=== PATIENT | female | born 1955 | race Caucasian/White ===

== ENCOUNTER → 2016-12-15 | Outpatient (CLI) | payer OTHER, MEDICARE ==
--- NOTE | 2016-12-16 08:51 | MM ---
Reason for exam: screening (asymptomatic). Last mammogram was performed 2 years and 6 months ago. History: Patient is postmenopausal and is nulliparous. Physical Findings: A clinical breast exam by your physician is recommended on an annual basis and results should be correlated with mammographic findings. MG 3D Screening Mammo W/Cad Bilateral CC and MLO view(s) were taken. Prior study comparison: June 13, 2014, bilateral MG screening mammo w CAD. August 17, 2012, mammogram, performed at [place]. There are scattered fibroglandular densities. Stable benign calcifications. There is no discrete abnormality. No significant changes when compared with prior studies. ASSESSMENT: Benign, BI-RAD 2 RECOMMENDATION: Routine screening mammogram of both breasts in 1 year.
== END | disposition home or self-care (01) ==
LOC: RADMAMWWP 12:50
PROVIDERS: ATTEND Family Medicine
DX: Z12.31 Encounter for screening mammogram for malignant neoplasm of breast (principal)
CPT/HCPCS: 77063; G0202

== ENCOUNTER → 2016-12-16 | Outpatient (CLI) | payer OTHER, MEDICARE ==
--- NOTE | 2016-12-16 14:34 | CT ---
EXAMINATION TYPE: CT brain wo/w con DATE OF EXAM: 12/16/2016 1:46 PM COMPARISON: NONE HISTORY: headache, syncope CT DLP: 2095 mGycm Automated exposure control for dose reduction was used. CONTRAST: CT scan of the head is performed with IV Contrast, patient injected with 100 mL of Omnipaque 300. FINDINGS: There is no abnormal enhancing mass or midline shift identified. The ventricles and sulci are within normal limits in size. The globes are intact and the visualized sinuses are clear. IMPRESSION: Negative contrast enhanced head CT exam.
== END | disposition home or self-care (01) ==
LOC: RADCTMAIN 13:09
PROVIDERS: ATTEND Family Medicine
DX: R51 Headache (principal); R55 Syncope and collapse
CPT/HCPCS: 70470

== ENCOUNTER → 2017-01-28 | Outpatient (CLI) | payer OTHER, MEDICARE ==
[2017-01-28 11:55] VITALS: BP 126/80; PULSE 55; RESP 20; TEMP 97.7; BMI 32.5
[2017-01-28 13:12] LABS: CH 29.3; CHCM 33.4; HDW 2.44; HGB 15.2 gm/dL (11.4-16.0); MCV 87.9 fL (80.0-100.0); Mean Platelet Volume 7.3; RBC 5.23 m/uL (3.80-5.40); RDW 13.3 % (11.5-15.5); WBC 5.7 k/uL (3.8-10.6)
[2017-01-28 13:32] LABS: ALT 28 U/L (9-52); AST 26 U/L (14-36); Alkaline Phosphatase 87 U/L (38-126); Anion Gap 9 mmol/L; Blood Urea Nitrogen 19 mg/dL (7-17); Calcium 9.5 mg/dL (8.4-10.2); Carbon Dioxide 30 mmol/L (22-30); Chloride 100 mmol/L (98-107); Cholesterol 175 mg/dL (<200); Glucose 100 mg/dL (74-99); HDL Cholesterol 76 mg/dL (40-60); Iron 91 ug/dL (37-170); Non-African American GFR(MDRD) >60 (>60 ml/min/1.73 sqM); Partial Thromboplastin Time 22.9 sec (22.0-30.0); Phosphorous 4.4 mg/dL (2.5-4.5); Potassium 4.8 mmol/L (3.5-5.1); Prothrombin Time 10.2 sec (9.0-12.0); Sodium 139 mmol/L (137-145); Total Bilirubin 1.2 mg/dL (0.2-1.3); Total Protein 7.5 g/dL (6.3-8.2); Triglycerides 59 mg/dL (<150)
[2017-01-28 13:40] LABS: Hemoglobin A1C 5.2 % (4.2-6.1)
[2017-01-28 13:44] LABS: % Iron Saturation 27.1 % (20-50); Prealbumin 17 mg/dL (18-36); Total Iron Binding Capacity 336 ug/dL (265-497)
[2017-01-28 14:44] LABS: Vitamin B12 427 pg/mL (239-931)
[2017-02-02 16:40] LABS: Selenium 149 mcg/L (63-160)
--- NOTE | 2017-03-19 11:09 | P.PN ---
Progress Note - Text DATE OF SERVICE: 01/28/2017 CHIEF COMPLAINT: Follow-up gastric bypass. HISTORY OF PRESENT ILLNESS: Dahlia Landin is a 61-year-old female who is status post Jaison-en-Y gastric bypass in [place] in 2011. At her height of 5 feet 3-1/4 inches, her ideal body weight is 140 pounds. Her highest weight iwa 298 pounds. Today she comes in weighing 188 pounds. She has maintained a 110 pound weight loss. Percent excess weight loss is 70%. Since her last evaluation almost 2 years ago, body mass index is reduced from 51.7 and 32.5. BMI point reduction is 19.1. She is 48 pounds overweight. Now she comes in for evaluation for panniculectomy. She complains of lower back pain as a result. Now she comes in with trouble with her blood pressure. She also reports severe panniculitis. PAST MEDICAL HISTORY: 1. Morbid obesity. 2. Hiatal hernia. 3. Cardiomyopathy. 4. Dyslipidemia. 5. Hypertension. 6. Panniculitis. PAST SURGICAL HISTORY: 1. Jaison-en-Y gastric bypass. 2. EGD. MEDICATIONS: 1. Multivitamin. 2. Feosol. 3. Vitamin B12. 4. Vitamin D. 5. Hygroton. 6. Ventolin. ALLERGIES: 1. LATEX. 2. PENICILLIN. 3. BACTRIM. SOCIAL HISTORY: Former smoker. Admits alcohol use. FAMILY HISTORY: Pertinent for diabetes including morbid obesity. REVIEW OF SYSTEMS: CONSTITUTIONAL: Weight loss of 3 pounds in 3 years. Original weight was 298 pounds. Current weight 188 pounds. She is 110 pounds overweight. Percent excess weight loss is 70%. Body mass index down from 51.7 down to 32.5. HEENT: No troubles with vision or hearing. ENDOCRINE: History of diabetes type 2, resolved. Denies any thyroid disorder. CARDIOVASCULAR: No reports of chest and heart attack. RESPIRATORY: No reports of dyspnea on exertion, obstructive sleep apnea. GI: Dumping syndrome has resolved with dietary education. MUSCULOSKELETAL: No reports of bilateral extremity edema. Osteoarthritis resolved. Has lower back pain. NEUROLOGICAL: No reports of headaches or seizure disorders. PSYCH: No gross suicidal ideation. However, she does report depression. HEMATOLOGIC: Denies any easy bruising and bleeding. PHYSICAL EXAM: VITAL SIGNS: 97.7, 55, 20, 126/80, 5-foot 3-1/4 inch frame, 188 pounds. Body mass index 32.5. ABDOMEN: Soft, nontender. Pannus extends over pubis 6 cm. Hyperemia identified. Weight of pannus is over 10 pounds. GENERAL: Well-developed female in no acute distress. HEENT: No scleral icterus. Extraocular movements grossly intact. Moist buccal mucosa. NECK: Supple without lymphadenopathy. CHEST: Unlabored respirations. Equal bilateral excursions. CARDIOVASCULAR: Regular rate. MUSCULOSKELETAL: No clubbing, cyanosis. NEUROLOGICAL: No focal or lateralizing signs. PSYCH: Appropriate affect. Alert and oriented to person, place, and time. LABS: White count 5.7, hemoglobin 15.2. BUN 19. Glucose of 100. Prealbumin low at 17, HDL elevated at 76. Vitamin D elevated at 18.8. ASSESSMENT: 1. Status post Jaison-en-Y gastric bypass. 2. Vitamin B12 deficiency. 3. Vitamin D deficiency. 4. Status post massive weight loss of 110 pounds. 5. Morbid obesity due to excess calories. 6. Body mass index reduced from 51.7 down to 32.5. 7. Osteoarthritis. 8. History of panniculitis. PLAN: 1. Recommend vitamin D supplement of at least 50,000 units daily. 2. Recommend goal protein intake of over 75 grams daily. 3. With her long-standing weight loss and maintained weight loss of over 100 pounds, recommend a panniculectomy. 4. Recommend correction for vitamin D deficiency as described. 5. Recommend follow-up with dietitian as well. 6. In the interim, recommend nystatin powder. 7. Inpatient hospitalization anticipated about 2 nights. 8. DVT prophylaxis. 9. Antibiotic prophylaxis.
== END | disposition home or self-care (01) ==
LOC: BARWHC3 10:31
PROVIDERS: ATTEND Surgery Plastic and Reconstructive Surgery
DX: Z48.815 Encounter for surgical aftercare following surgery on the digestive system (principal); E66.01 Morbid (severe) obesity due to excess calories; Z68.32 Body mass index [BMI] 32.0-32.9, adult; Z98.84 Bariatric surgery status; E21.1 Secondary hyperparathyroidism, not elsewhere classified; E89.1 Postprocedural hypoinsulinemia; D50.8 Other iron deficiency anemias; E44.0 Moderate protein-calorie malnutrition; E55.9 Vitamin D deficiency, unspecified; K74.1 Hepatic sclerosis; N19 Unspecified kidney failure; K50.90 Crohn's disease, unspecified, without complications
CPT/HCPCS: 80053; 80061; 82306; 82525; 82607; 82728; 82746; 83036; 83540; 83550; 83735; 83970; 84100; 84134; 84255; 84425; 84443; 84590; 84630; 85027; 85610; 85730; 99211

== ENCOUNTER → 2017-11-03 | Outpatient (CLI) | payer MEDICARE, OTHER | END | disposition home or self-care (01) | LOC: LABMAIN 12:14 | PROVIDERS: ATTEND Family Medicine | DX: J11.1 Influenza due to unidentified influenza virus with other respiratory manifestations (principal) | CPT/HCPCS: 87502 ==

== ENCOUNTER → 2017-11-16 | Outpatient (CLI) | payer MEDICARE, OTHER ==
--- NOTE | 2017-11-16 13:47 | XR ---
EXAMINATION TYPE: XR chest 2V DATE OF EXAM: 11/16/2017 COMPARISON: 11/21/2014 HISTORY: Shortness of breath with history of cardiac disease TECHNIQUE: Frontal and lateral views of the chest are obtained. FINDINGS: There is no focal air space opacity, pleural effusion, or pneumothorax seen. The cardiac silhouette size is within normal limits. The osseous structures are intact. Mild right acromioclavi cular arthropathy is noted as well as minimal multilevel degenerative changes of the thoracic spine. IMPRESSION: No acute cardiopulmonary process.
== END | disposition home or self-care (01) ==
LOC: RADXRMAIN 12:42
PROVIDERS: ATTEND Internal Medicine Cardiovascular Disease
DX: R06.02 Shortness of breath (principal); R60.0 Localized edema; R00.1 Bradycardia, unspecified; Z88.0 Allergy status to penicillin; Z88.1 Allergy status to other antibiotic agents
CPT/HCPCS: 71046

== ENCOUNTER → 2017-11-16 | Outpatient (CLI) | payer MEDICARE, OTHER ==
[2017-11-16 13:43] LABS: HCT 41.1 % (34.0-46.0); MCH 28.3 pg (25.0-35.0); MCHC 31.7 g/dL (31.0-37.0); MCV 89.2 fL (80.0-100.0); Mean Platelet Volume 7.8; Platelet Count 250 k/uL (150-450); RBC 4.61 m/uL (3.80-5.40); RDW 13.6 % (11.5-15.5); WBC 5.5 k/uL (3.8-10.6)
[2017-11-16 14:01] LABS: ALT 24 U/L (9-52); AST 21 U/L (14-36); Albumin 4.1 g/dL (3.5-5.0); Alkaline Phosphatase 98 U/L (38-126); Anion Gap 10 mmol/L; Blood Urea Nitrogen 16 mg/dL (7-17); Calcium 8.9 mg/dL (8.4-10.2); Carbon Dioxide 30 mmol/L (22-30); Chloride 103 mmol/L (98-107); Glucose 197 mg/dL (74-99); Potassium 5.2 mmol/L (3.5-5.1); Sodium 143 mmol/L (137-145); Total Bilirubin 0.4 mg/dL (0.2-1.3); Total Protein 6.8 g/dL (6.3-8.2)
== END | disposition home or self-care (01) ==
LOC: LABWHC1 13:01
PROVIDERS: ATTEND Nurse Practitioner Adult Health
DX: R60.0 Localized edema (principal); R00.1 Bradycardia, unspecified; R06.02 Shortness of breath
CPT/HCPCS: 36415; 80053; 83880; 84443; 85027

== ENCOUNTER → 2018-01-06 | Outpatient (CLI) | payer MEDICARE, OTHER ==
[2018-01-06 11:53] LABS: HGB 13.8 gm/dL (11.4-16.0); MCH 28.3 pg (25.0-35.0); MCHC 32.8 g/dL (31.0-37.0); Mean Platelet Volume 7.7; Platelet Count 275 k/uL (150-450); RBC 4.88 m/uL (3.80-5.40); RDW 13.8 % (11.5-15.5); WBC 6.8 k/uL (3.8-10.6)
[2018-01-06 12:36] LABS: Anion Gap 10 mmol/L; Blood Urea Nitrogen 21 mg/dL (7-17); Carbon Dioxide 28 mmol/L (22-30); Chloride 104 mmol/L (98-107); Potassium 5.7 mmol/L (3.5-5.1); Sodium 142 mmol/L (137-145)
== END | disposition home or self-care (01) ==
LOC: LABWHC1 11:27
PROVIDERS: ATTEND Internal Medicine Cardiovascular Disease
DX: Z01.812 Encounter for preprocedural laboratory examination (principal); I25.10 Atherosclerotic heart disease of native coronary artery without angina pectoris
CPT/HCPCS: 36415; 80051; 82565; 84520; 85027

== ENCOUNTER 2018-01-17 10:40 | Day surgery (SDC) | payer MEDICARE, OTHER ==
[~2018-01-17 10:40] MED LIST: ALPRAZolam 0.25 MG TAB PO PRN; ASPIRIN 325 MG TAB PO ONE; FAMOTIDINE 20 MG/2 ML VIAL IV ONE; NITROGLYCERIN SL TABS 0.4 MG TAB SUBLINGUAL PRN; SODIUM CHLORIDE 0.9% 1,000 ML in EMPTY BAG 1 BAG IV ONE; diphenhydrAMINE 50 MG/ML 1 ML VIAL IVP STA; methylPREDNISolone SOD SUCCI 125 MG/2 ML VIAL IV STA
[2018-01-17 11:10] LABS: Glucose,Whole Blood 98 mg/dL (75-99)
[2018-01-17] MEDS ORDERED: LIDOCAINE 2% INJ 20 MG/ML (20 ML MDV) ONE (11:32)
[2018-01-17] MEDS ORDERED: fentaNYL (PF) 50 MCG/ML 2 ML AMP ONE (11:32)
[2018-01-17] MEDS ORDERED: MIDAZOLAM 2 MG/2 ML VIAL ONE (11:32)
[2018-01-17] MEDS ORDERED: DEXAMETHASONE SOD PHOSPHATE 10 MG/ML 1 ML VIAL IV STA (11:46)
[2018-01-17] MEDS ORDERED: fentaNYL (PF) 50 MCG/ML 2 ML AMP IV ONE (11:51)
[2018-01-17] MEDS ORDERED: MIDAZOLAM 2 MG/2 ML VIAL IV ONE (11:51)
[2018-01-17] MEDS ORDERED: SODIUM CHLORIDE 0.9% 1,000 ML IV ONE (11:52)
[2018-01-17] MEDS ORDERED: LIDOCAINE 2% INJ 20 MG/ML SQ ONE (11:55)
[2018-01-17] MEDS ORDERED: RX INFO: IV CONTRAST WAS GIVEN 1 EACH MISC MISCELLANE PRN (12:14)
[2018-01-17] MEDS ORDERED: SODIUM CHLORIDE 0.9% 1,000 ML IV SCH (12:15)
[2018-01-17] MEDS ORDERED: IOPAMIDOL-370 125ML BTL INJ ONE (12:16)
--- NOTE | 2018-01-17 12:20 | P.PCN ---
Date of Procedure: 01/17/18 Preoperative Diagnosis: Shortness of breath and positive stress test Postoperative Diagnosis: Normal coronary arteries Procedure(s) Performed: Left heart cath without left ventriculography Description of Procedure: HISTORY: This is a 62-year-old female with history of palpitation and shortness of breath who was evaluated by nuclear stress test. This was reported as showing ischemia involving the anterior wall. Patient is advised to have cardiac catheterization for definitive diagnosis. CONSENT:I have discussed the risks, benefits and alternative therapies for the above-mentioned procedure and for both sedation/analgesia as well as necessary blood product administration, if indicated, as they pertain to this patient. The patient has indicated understanding and acceptance of the risks and procedures discussed. PROCEDURE: Patient was brought to the lab in a fasting state. Patient was given some IV sedation. The right groin is infiltrated with lidocaine and right femoral artery was entered using Seldinger technique. A 6-Greenlandic catheter was left in place and selective coronary arteriography was performed. Patient tolerated the procedure well. Femoral angiogram was performed and Angio-Seal was applied for hemostasis. No immediate complications were noted and patient was transferred to [facility] in a stable condition Conscious Sedation: Versed 1mg Fentanyl 50 g Duration 13minutes HEMODYNAMICS: The aortic pressure is 150/70. Left ventricular end-diastolic pressure is 12. There was no gradient across the aortic valve. SELECTIVE CORONARY ARTERIOGRAPHY: LEFT MAIN: This is normal length and patent THE LEFT ANTERIOR DESCENDING CORONARY ARTERY: This is a good caliber vessel giving rise to small septal and diagonal branches. The LAD and branches are free of any significant occlusive disease. THE LEFT CIRCUMFLEX AND IS CORONARY ARTERY: The circumflex and is coronary artery. The circumflex and is coronary artery is a moderate caliber vessel giving rise to good-sized OM branch. The circumflex coronary artery and branches are free of any occlusive disease THE RIGHT CORONARY ARTERY: The right coronary artery the right coronary artery is a moderate caliber vessel giving rise to PDA and PLV and codominant. This is free of any occlusive disease LEFT VENTRICULOGRAPHY:Not performed FINAL IMPRESSION: Normal coronary arteries PLAN: Maximum medical therapy PROGNOSIS: . Fair
[2018-01-17 16:00] VITALS: RESP 20
[2018-01-17 16:05] VITALS: BP 125/60
[2018-01-17] MEDS ORDERED: FAMOTIDINE 20 MG/2 ML VIAL IV SCH (21:00)
== END 2018-01-17 17:30 | disposition home or self-care (01) ==
LOC: CATHCVL 10:40
PROVIDERS: ATTEND Internal Medicine Cardiovascular Disease
DX: R94.39 Abnormal result of other cardiovascular function study (principal); R00.2 Palpitations; I35.0 Nonrheumatic aortic (valve) stenosis; I49.5 Sick sinus syndrome; I10 Essential (primary) hypertension; R60.0 Localized edema; E78.5 Hyperlipidemia, unspecified; Z87.891 Personal history of nicotine dependence; E11.9 Type 2 diabetes mellitus without complications; Z79.51 Long term (current) use of inhaled steroids; Z79.899 Other long term (current) drug therapy; Z88.0 Allergy status to penicillin; Z88.2 Allergy status to sulfonamides
CPT/HCPCS: 93458; 84132; C1760; C1894; C1769; J2001; J2250; J1200; J1100; J3010; Q9967

== ENCOUNTER 2018-03-01 07:16 | Emergency (ER) | payer MEDICARE, OTHER ==
--- NOTE | 2018-03-01 08:11 | ED ---
Fall HPI - General Chief Complaint: Fall Stated Complaint: faal with rib pain Time Seen by Provider: 03/01/18 08:04 Source: patient, RN notes reviewed, old records reviewed Mode of arrival: wheelchair - History of Present Illness Initial Comments: Is a 62-year-old female presents to the emergency department after a trip and fall this morning. She reports that she tripped over a small cement step and landed on her left knee and her left elbow when into her left ribs. Patient states it's painful when she takes deep breath due to the rib pain. Patient states that she was able to bear weight on her leg but it is painful she's noticed some swelling within the knee. No previous injury to the knee. She reports some abrasions over her elbow and her knee. She denies any head or neck injury.Patient denies any recent fever, chills, shortness of breath, chest pain, back pain, abdominal pain, nausea vomiting, numbness or tingling, dysuria or hematuria, constipation or diarrhea, headaches or visual changes, or any other current symptoms - Related Data Home Medications Medication Instructions Recorded Confirmed Citalopram Hydrobromide [CeleXA] 10 mg PO HS 03/01/18 03/01/18 Vits A,C,E/Lutein/Minerals 2 tab PO QAM 03/01/18 03/01/18 [Ocuvite with Lutein Tablet] Previous Rx's Medication Instructions Recorded Cyclobenzaprine [Flexeril] 10 mg PO TID #15 tab 03/01/18 Ibuprofen 600 mg PO TID #20 tablet 03/01/18 Allergies Allergy/AdvReac Type Severity Reaction Status Date / Time latex Allergy Rash/Hives Verified 03/01/18 07:33 methylprednisolone Allergy Unknown Verified 03/01/18 07:33 [From Medrol] Milk Containing Products Allergy Diarrhea Verified 03/01/18 07:33 [Dairy] penicillin G Allergy Rash/Hives Verified 03/01/18 07:33 shellfish derived [Shellfish] Allergy Swelling, Verified 03/01/18 07:33 HIVES sulfamethoxazole Allergy Rash/Hives Verified 03/01/18 07:33 [From Bactrim] trimethoprim [From Bactrim] Allergy Rash/Hives Verified 03/01/18 07:33 Review of Systems ROS Statement: Those systems with pertinent positive or pertinent negative responses have been documented in the HPI. ROS Other: All systems not noted in ROS Statement are negative. Past Medical History Past Medical History: Asthma, Diabetes Mellitus, GERD/Reflux, Hyperlipidemia, Hypertension, Osteoarthritis (OA), Skin Disorder, Supraventricular Tachycardia ( SVT) Additional Past Medical History / Comment(s): SEE CARDIOLOGY H & P. LEG CRAMPS. Resolved diabetes and HTN post bariatric surgery. Hiatial hernia. CATARACTS. ULCERS. PER PATIENT,"HAS A HEART MURMUR". History of Any Multi-Drug Resistant Organisms: MRSA Date of last positivie culture/infection: 2-3 years ago per patient MDRO Source:: MRSA skin abcess, RIGHT BREAST Past Surgical History: Bariatric Surgery Additional Past Surgical History / Comment(s): GASTRIC Bypass 07/14/12 Dr.Naziri Moshe Rea. Cataracts rt eye 12/02/15 removed and left eye 11/17/15. Past Anesthesia/Blood Transfusion Reactions: Family History of Problems w/ Anesthesia, Motion Sickness, Postoperative Nausea & Vomiting (PONV) Additional Past Anesthesia/Blood Transfusion Reaction / Comment(s): SISTER HAD CONFUSION. Past Psychological History: No Psychological Hx Reported Smoking Status: Former smoker Past Alcohol Use History: Rare Past Drug Use History: None Reported - Past Family History Mother Sister(s) Family Medical History: Cancer General Exam - General Exam Comments Initial Comments: Are neuron and 62-year-old female. Moderate discomfort. Limitations: no limitations General appearance: alert, in no apparent distress Head exam: Present: atraumatic, normocephalic, normal inspection Eye exam: Present: normal appearance, PERRL, EOMI. Absent: scleral icterus, conjunctival injection, periorbital swelling ENT exam: Present: normal exam, mucous membranes moist Neck exam: Present: normal inspection. Absent: tenderness, meningismus, lymphadenopathy Respiratory exam: Present: normal lung sounds bilaterally, chest wall tenderness (Patient has tenderness over the left ribs.). Absent: respiratory distress, wheezes, rales, rhonchi, stridor Cardiovascular Exam: Present: regular rate, normal rhythm, normal heart sounds. Absent: systolic murmur, diastolic murmur, rubs, gallop, clicks GI/Abdominal exam: Present: soft, normal bowel sounds. Absent: distended, tenderness, guarding, rebound, rigid Extremities exam: Present: full ROM, normal capillary refill. Absent: normal inspection, tenderness, pedal edema, joint swelling, calf tenderness Left Knee exam: Present: full ROM, tenderness (Her lateral aspect of the knee.), swelling, abrasion. Absent: normal inspection Lower Leg exam: Present: normal inspection Ankle exam: Present: normal inspection, full ROM Foot/Toe exam: Present: normal inspection, full ROM Neurovascular tendon exam: Present: no vascular compromise Gait: observed and limited by pain Back exam: Present: normal inspection Neurological exam: Present: alert, oriented X3, CN II-XII intact Course Vital Signs 03/01/18 07:17 Temperature 98 F Pulse Rate 97 Respiratory 20 Rate Blood Pressure 157/70 O2 Sat by Pulse 99 Oximetry Medical Decision Making - Medical Decision Making 62-year-old female presents emergency room in today with left knee and left rib pain after she fell and tripped over a step. Patient arrived here. She drove herself here. X-rays were completed and showed no evidence of any fractures. She does have some knee effusion. This time Patient will be given an Wing wrap, and will discharge her with muscle relaxer and pain medicine and anti- inflammatories. Discussed following up with primary care provider as well as medical management specialist in regards to the knee pain and swelling. Patient agrees treatment plan will comply. Return parameters were discussed. - Radiology Data Radiology results: report reviewed X-ray of the ribs and chest showed no acute displaced rib fracture. X-ray of the knee shows no acute fracture dislocation. Evidence of osteoarthritis. Disposition Clinical Impression: Fall (on) (from) other stairs and steps, initial encounter, Sprain, knee, Rib pain on left side Disposition: HOME SELF-CARE Condition: Good Additional Instructions: Patient is to follow-up with primary care provider and medical management specialist. Take antibiotic for a muscle relaxers as prescribed. Apply ice over the areas. Return to emergency department if any alarming signs or symptoms occur. Prescriptions: Cyclobenzaprine [Flexeril] 10 mg PO TID #15 tab Ibuprofen 600 mg PO TID #20 tablet Is patient prescribed a controlled substance at d/c from ED?: No When asked, does pt state using other controlled substances?: No If prescribed controlled substance>3 days was MAPS reviewed?: No If opioid is for acute pain is fill amount 7 days or less?: No If Rx opioid, was Start Talking consent form obtained?: No Referrals: None,Stated [Primary Care Provider] - 1-2 days Sendy Lara MD [STAFF PHYSICIAN] - 1-2 days Sameer Crews MD [REFERRING] - 1-2 days Gianni Lindsay DO [Doctor of Osteopathic Medicine] - 1-2 days Time of Disposition: 08:50
--- NOTE | 2018-03-01 08:38 | XR ---
EXAMINATION TYPE: XR ribs LT w pa chest xray DATE OF EXAM: 03/01/2018 COMPARISON: NONE HISTORY: Pain TECHNIQUE: Frontal view of the chest and 4 views of the ribs are obtained FINDINGS: Atherosclerotic change aorta. Degenerative change of the spine. No overt failure or pneumot horax. No consolidation. Arthropathy of the AC joint. No acute displaced rib fracture IMPRESSION: 1. No acute displaced rib fracture
[2018-03-01] MEDS ORDERED: KETOROLAC 60 MG/2 ML VIAL IM STA (08:45)
[2018-03-01] MEDS ORDERED: ORPHENADRINE 30 MG/ML 2 ML VIAL IM STA (08:45)
--- NOTE | 2018-03-01 08:47 | XR ---
EXAMINATION TYPE: XR knee complete LT DATE OF EXAM: 03/01/2018 COMPARISON: NONE HISTORY: Pain TECHNIQUE: Four views are submitted. FINDINGS: Diffuse osteopenia noted. Chronic appearing deformity of the fibula. Narrowing of the medial compartm ent of the knee joint and patellofemoral joint with small hypertrophic spurs. Osseous structures are intact. No acute fracture seen. Vascular calcifications noted. IMPRESSION: 1. No acute fracture or dislocation. 2. Osteoarthritis.
[2018-03-01 09:41] VITALS: BP 178/76; PULSE 56; RESP 18; TEMP 98.7
--- NOTE | 2018-03-01 10:26 | ED ---
Disposition Clinical Impression: Sprain, knee, Rib pain on left side, Fall Disposition: HOME SELF-CARE Condition: Good Instructions: Rib Contusion (ED) Additional Instructions: Patient is to follow-up with primary care provider and client technical specialist. Take antibiotic for a muscle relaxers as prescribed. Apply ice over the areas. Return to emergency department if any alarming signs or symptoms occur. Prescriptions: Cyclobenzaprine [Flexeril] 10 mg PO TID #15 tab Ibuprofen 600 mg PO TID #20 tablet Is patient prescribed a controlled substance at d/c from ED?: No When asked, does pt state using other controlled substances?: No If prescribed controlled substance>3 days was MAPS reviewed?: No If opioid is for acute pain is fill amount 7 days or less?: No If Rx opioid, was Start Talking consent form obtained?: No Referrals: Sameer Crews MD [REFERRING] - 1-2 days Sendy Lara MD [STAFF PHYSICIAN] - 1-2 days Gianni Lindsay DO [Doctor of Osteopathic Medicine] - 1-2 days None,Stated [Primary Care Provider] - 1-2 days Time of Disposition: 10:26
== END 2018-03-01 09:20 | disposition home or self-care (01) ==
LOC: EC 07:16
DX: S83.92XA Sprain of unspecified site of left knee, initial encounter (principal); R07.81 Pleurodynia; Z86.14 Personal history of Methicillin resistant Staphylococcus aureus infection; Z79.899 Other long term (current) drug therapy; Z88.0 Allergy status to penicillin; Z88.2 Allergy status to sulfonamides; Z91.013 Allergy to seafood; Z91.011 Allergy to milk products; Z91.040 Latex allergy status; Z88.8 Allergy status to other drugs, medicaments and biological substances; W10.9XXA Fall (on) (from) unspecified stairs and steps, initial encounter
CPT/HCPCS: 71101; 73562; 99284; 96372 ×2; J2360; J1885

== ENCOUNTER 2018-03-06 17:37 | Emergency (ER) | payer OTHER ==
[2018-03-06 17:42] VITALS: BP 145/63; PULSE 61; RESP 18; TEMP 98.4
[2018-03-06] MEDS ORDERED: HYDROcodone/APAP 5-325MG 1 EACH TAB PO STA (17:51)
--- NOTE | 2018-03-06 17:56 | ED ---
Fall HPI - General Chief Complaint: Fall Stated Complaint: Rib Pain Time Seen by Provider: 03/06/18 17:45 Source: patient Mode of arrival: wheelchair - History of Present Illness Initial Comments: 62-year-old female presented for evaluation of left chest wall pain. She states that she was seen here 5 days ago for mechanical fall from standing onto her left chest resulting in rib pain. X-rays at that time showed no acute fractures and she was discharged home with pain usual, muscle relaxers, and anti -inflammatories. During this time she continues to have chest pain over that site that is worse with palpation, worse with movement, and worse with deep inspiration. She states that she has been continuing to take her medications however has had no improvement in symptoms. She states that her other injuries from that time have improved and she has no new complaints. - Related Data Home Medications Medication Instructions Recorded Confirmed Citalopram Hydrobromide [CeleXA] 10 mg PO HS 03/01/18 03/01/18 Vits A,C,E/Lutein/Minerals 2 tab PO QAM 03/01/18 03/01/18 [Ocuvite with Lutein Tablet] Previous Rx's Medication Instructions Recorded Cyclobenzaprine [Flexeril] 10 mg PO TID #15 tab 03/01/18 Ibuprofen 600 mg PO TID #20 tablet 03/01/18 Allergies Allergy/AdvReac Type Severity Reaction Status Date / Time latex Allergy Rash/Hives Verified 03/06/18 17:42 methylprednisolone Allergy Unknown Verified 03/06/18 17:42 [From Medrol] Milk Containing Products Allergy Diarrhea Verified 03/06/18 17:42 [Dairy] penicillin G Allergy Rash/Hives Verified 03/06/18 17:42 shellfish derived [Shellfish] Allergy Swelling, Verified 03/06/18 17:42 HIVES sulfamethoxazole Allergy Rash/Hives Verified 03/06/18 17:42 [From Bactrim] trimethoprim [From Bactrim] Allergy Rash/Hives Verified 03/06/18 17:42 Review of Systems ROS Statement: Those systems with pertinent positive or pertinent negative responses have been documented in the HPI. ROS Other: All systems not noted in ROS Statement are negative. Constitutional: Denies: fever, chills Eyes: Denies: eye pain, vision change ENT: Denies: ear pain, throat pain Respiratory: Denies: cough, dyspnea Cardiovascular: Denies: chest pain, palpitations Endocrine: Denies: fatigue, polydipsia Gastrointestinal: Denies: abdominal pain, nausea, vomiting Genitourinary: Denies: urgency, dysuria Musculoskeletal: Reports: other (Left-sided chest wall pain). Denies: back pain , arthralgia, myalgia Skin: Denies: rash, lesions, change in color Neurological: Denies: headache, weakness Psychiatric: Denies: anxiety, depression Hematological/Lymphatic: Denies: easy bleeding, easy bruising Past Medical History Past Medical History: Asthma, Diabetes Mellitus, GERD/Reflux, Hyperlipidemia, Hypertension, Osteoarthritis (OA), Skin Disorder, Supraventricular Tachycardia ( SVT) Additional Past Medical History / Comment(s): SEE CARDIOLOGY H & P. LEG CRAMPS. Resolved diabetes and HTN post bariatric surgery. Hiatial hernia. CATARACTS. ULCERS. PER PATIENT,"HAS A HEART MURMUR". History of Any Multi-Drug Resistant Organisms: MRSA Date of last positivie culture/infection: 2-3 years ago per patient MDRO Source:: MRSA skin abcess, RIGHT BREAST Past Surgical History: Bariatric Surgery Additional Past Surgical History / Comment(s): GASTRIC Bypass 07/14/12 [place]. Cataracts rt eye 12/02/15 removed and left eye 11/17/15. Past Anesthesia/Blood Transfusion Reactions: Family History of Problems w/ Anesthesia, Motion Sickness, Postoperative Nausea & Vomiting (PONV) Additional Past Anesthesia/Blood Transfusion Reaction / Comment(s): SISTER HAD CONFUSION. Past Psychological History: No Psychological Hx Reported Smoking Status: Former smoker Past Alcohol Use History: Rare Past Drug Use History: None Reported - Past Family History Mother Sister(s) Family Medical History: Cancer General Exam Limitations: no limitations General appearance: alert, in distress (Mild) Head exam: Present: atraumatic, normocephalic, normal inspection Eye exam: Present: normal appearance, PERRL, EOMI. Absent: scleral icterus, conjunctival injection, periorbital swelling ENT exam: Present: normal exam, mucous membranes moist Neck exam: Present: normal inspection. Absent: tenderness, meningismus, lymphadenopathy Respiratory exam: Present: normal lung sounds bilaterally, chest wall tenderness (left sided). Absent: respiratory distress, wheezes, rales, rhonchi , stridor Cardiovascular Exam: Present: regular rate, normal rhythm, normal heart sounds. Absent: systolic murmur, diastolic murmur, rubs, gallop, clicks GI/Abdominal exam: Present: soft, normal bowel sounds. Absent: distended, tenderness, guarding, rebound, rigid Rectal exam: Present: deferred Extremities exam: Present: normal inspection, full ROM, normal capillary refill. Absent: tenderness, pedal edema, joint swelling, calf tenderness Back exam: Present: normal inspection Neurological exam: Present: alert, oriented X3, CN II-XII intact Psychiatric exam: Present: normal affect, normal mood Skin exam: Present: warm, dry, intact, normal color. Absent: rash Course Vital Signs 03/06/18 17:40 Temperature 98.4 F Pulse Rate 61 Respiratory 18 Rate Blood Pressure 145/63 O2 Sat by Pulse 98 Oximetry Medical Decision Making - Medical Decision Making 62-year-old female presenting for evaluation of left-sided chest wall pain 5 days after initial fall injury. On physical examination she appears to be in mild to moderate distress and is holding the left side of her chest. States pain is worse with palpation and this is limited during exam. Lungs are clear to auscultation bilaterally and there are no decreased breath sounds. There is no overlying erythema, contusion, or discoloration. Given that her recent chest x-ray showed no acute process will obtain CT chest and provide pain control. Patient states that she has a ride home. CT chest showed no acute fractures or other traumatic injuries. Pt reevaluated and had no change in exam. Informed of results and through shared decision making it was determined that she would be discharged with instructions to follow up with her PCP but to return if her symptoms should worsen or persist. She acknowledged an understanding of all information provided and agreed with this plan of care. Disposition Clinical Impression: Chest wall pain Disposition: HOME SELF-CARE Condition: Stable Instructions: Chest Wall Pain (ED) Is patient prescribed a controlled substance at d/c from ED?: No Referrals: Sendy Lara MD [STAFF PHYSICIAN] - 1-2 days Time of Disposition: 18:35
--- NOTE | 2018-03-06 18:21 | CT ---
EXAMINATION TYPE: CT chest wo con DATE OF EXAM: 03/06/2018 COMPARISON: NONE HISTORY: Fall 5 days ago, left sided rib pain. CT DLP: 451.8 mGycm. Automated Exposure Control for Dose Reduction was Utilized. TECHNIQUE: CT scan of the thorax is performed without IV contrast. FINDINGS: The lungs are clear of infiltrate. There is no pleural effusion or pneumothorax. There is no mediasti nal adenopathy. There is mild atheromatous change in the thoracic aorta. There is no evidence of aneu rysm. There is no pericardial effusion. Heart size is normal. The ribs appear intact. There is spurring in the thoracic spine. There is no compression fracture. Sp tobi appears normal. IMPRESSION: Mild atherosclerotic vascular disease. Otherwise negative exam. No evidence of traumatic injury.
== END 2018-03-06 18:44 | disposition home or self-care (01) ==
LOC: EC 17:37
DX: R07.89 Other chest pain (principal); Z86.14 Personal history of Methicillin resistant Staphylococcus aureus infection; Z88.0 Allergy status to penicillin; Z88.1 Allergy status to other antibiotic agents; Z88.2 Allergy status to sulfonamides; Z88.8 Allergy status to other drugs, medicaments and biological substances; Z91.011 Allergy to milk products; Z91.013 Allergy to seafood; Z91.040 Latex allergy status; Z79.899 Other long term (current) drug therapy; Z87.891 Personal history of nicotine dependence
CPT/HCPCS: 71250; 99284

== ENCOUNTER 2022-06-15 06:51 | Day surgery (SDC) | payer MEDICARE, OTHER ==
[2022-06-11 11:51] VITALS: BMI 35.2
--- NOTE | 2022-06-15 07:10 | P.GSHP ---
History of Present Illness H&P Date: 06/15/22 CHIEF COMPLAINT: GERD HISTORY OF PRESENT ILLNESS: The patient is a 66-year-old female who presents reports gastroesophageal reflux disease. Upper endoscopy was offered for further evaluation and management. PAST MEDICAL HISTORY: Please see list. PAST SURGICAL HISTORY: Please see list. MEDICATIONS: Please see list. ALLERGIES: Please see list. SOCIAL HISTORY: No illicit drug use FAMILY HISTORY: No reports of Crohn disease or ulcerative colitis. REVIEW OF ORGAN SYSTEMS: CONSTITUTIONAL: No reports of fevers or chills. GI: Denies any blood in stools or constipation. PHYSICAL EXAM: VITAL SIGNS: Stable GENERAL: Well-developed and pleasant in no acute distress. HEENT: No scleral icterus. Extraocular movements grossly intact. Moist buccal mucosa. NECK: Supple without lymphadenopathy. CHEST: Unlabored respirations. Equal bilateral excursions. CARDIOVASCULAR: Regular rate and rhythm. Distal 2+ pulses. ABDOMEN: Soft, nondistended. MUSCULOSKELETAL: No clubbing, cyanosis, or edema. ASSESSMENT: 1. Gastroesophageal reflux disease PLAN: 1. Recommend proceeding with an upper endoscopy Past Medical History Past Medical History: Asthma, Diabetes Mellitus, GERD/Reflux, Hyperlipidemia, Hypertension, Osteoarthritis (OA), Skin Disorder, Supraventricular Tachycardia (SVT) Additional Past Medical History / Comment(s): LEG CRAMPS. Resolved diabetes post bariatric surgery. Hiatial hernia. CATARACTS. stomach ULCERS. PER PATIENT,"HAS A HEART MURMUR". History of Any Multi-Drug Resistant Organisms: MRSA Date of last positivie culture/infection: ?2009 MDRO Source:: MRSA skin abcess, RIGHT BREAST Past Surgical History: Bariatric Surgery Additional Past Surgical History / Comment(s): GASTRIC Bypass 07/14/12 [place]. Cataracts rt eye 12/02/15 removed and left eye 11/17/15. Past Anesthesia/Blood Transfusion Reactions: Family History of Problems w/ Anesthesia, Motion Sickness, Postoperative Nausea & Vomiting (PONV) Additional Past Anesthesia/Blood Transfusion Reaction / Comment(s): SISTER HAD CONFUSION.,unable to lay flat causes N/V Smoking Status: Former smoker - Past Family History Mother Sister(s) Family Medical History: Cancer Medications and Allergies Home Medications Medication Instructions Recorded Confirmed Type Albuterol Nebulized [Ventolin 2.5 mg INHALATION Q6H PRN 06/11/22 06/11/22 History Nebulized] Budesonide-Formot 160-4.5 Mcg 2 puff INHALATION BID PRN 06/11/22 06/11/22 History [Symbicort 160-4.5 Mcg Inhaler] Nitroglycerin Sl Tabs [Nitrostat] 0.4 mg SUBLINGUAL Q5M PRN 06/11/22 06/11/22 History lisinopriL [Zestril] 5 mg PO QAM 06/11/22 06/11/22 History Allergies Allergy/AdvReac Type Severity Reaction Status Date / Time latex Allergy Rash/Hives Verified 06/11/22 11:40 methylprednisolone Allergy Unknown Verified 06/11/22 11:40 [From Medrol] Milk Containing Products Allergy Diarrhea Verified 06/11/22 11:40 [Dairy] penicillin G Allergy Rash/Hives Verified 06/11/22 11:40 shellfish derived [Shellfish] Allergy Swelling, Verified 06/11/22 11:40 HIVES sulfamethoxazole Allergy Rash/Hives Verified 06/11/22 11:40 [From Bactrim] trimethoprim [From Bactrim] Allergy Rash/Hives Verified 06/11/22 11:40
[2022-06-15 07:30] LABS: Glucose,Whole Blood 90 mg/dL (70-110)
[2022-06-15 07:34] VITALS: TEMP 97.8
[2022-06-15] MEDS: LACTATED RINGERS 1,000 ML IV SCH ×2 (07:35→07:46)
[2022-06-15] MEDS ORDERED: LIDOCAINE 2% INJ 20 MG/ML (2 ML VIAL) ONE (07:47)
[2022-06-15] MEDS ORDERED: PROPOFOL 10 MG/ML 20 ML VIAL IV ONE (07:47)
[2022-06-15 08:11] VITALS: RESP 16
[2022-06-15 08:23] VITALS: BP 167/65; PULSE 68
--- NOTE | 2022-06-15 08:28 | P.PCN ---
Date of Procedure: 06/15/22 Description of Procedure: PREOPERATIVE DIAGNOSIS: Dysphagia. s/p Jaison-en-y gastric bypass. Nausea with vomiting. Morbid obesity. POSTOPERATIVE DIAGNOSIS: Dysphagia. s/p Jaison-en-y gastric bypass. Nausea with vomiting. Morbid obesity. Gastrojejunal stricture with chronic ulcer without perforation OPERATION: Esophagogastrojejunoscopy with balloon dilatation from 15 to 20 mm. Esophagogastrojejunoscopy with cold forceps biopsies gastric pouch SURGEON: Delaney Olguin MD ANESTHESIA: MAC. INDICATIONS: The patient is a 66-year-old female who presents with a history of dysphagia, gastric bypass including new-onset nausea and vomiting. Benefits and risks of the procedure were described. Informed consent was obtained. DESCRIPTION: The patient was brought into the endoscopy suite and laid in the left lateral decubitus position. After a timeout was confirmed, the procedure was initiated. An Olympus gastroscope was passed along the posterior oropharynx down to the distal esophagus where the squamocolumnar junction was unremarkable. The gastric pouch was entered. A gastrojejunal stricture of 15 mm was found as the adult gastroscope was 9.5 mm in size. A [employer] balloon dilator was placed through the scope. Final insufflation up to 20 mm was performed with a total of 2 minutes. The scope was advanced up to 60 cm from the incisors into the Jaison limb. The mucosa of the gastrojejunal anastomosis was intact. Biopsies with cold forceps within the gastric pouch. However chronic gastrojejunal marginal ulcer was encountered. No full-thickness injury was encountered. The GI tract was desufflated. The patient tolerated the procedure well. FINDINGS: Squamocolumnar junction unremarkable at 35 cm. Stricture of approximately 15 mm encountered. Chronic gastrojejunal ulceration encountered, 5 mm and anastomosed Successful balloon dilatation to 20 mm. Diaphragmatic hiatus at 40 cm. Gastric pouch 5 cm. RECOMMENDATIONS: Start combined therapy of Carafate and Protonix for 4 weeks. Plan - Discharge Summary Discharge Rx Participant: No New Discharge Prescriptions: New Sucralfate [Carafate] 1 gm PO BID #60 tablet Pantoprazole [Protonix] 40 mg PO DAILY #30 tab Continue Nitroglycerin Sl Tabs [Nitrostat] 0.4 mg SUBLINGUAL Q5M PRN PRN Reason: Chest Pain Budesonide-Formot 160-4.5 Mcg [Symbicort 160-4.5 Mcg Inhaler] 2 puff INHALATION BID PRN PRN Reason: sob lisinopriL [Zestril] 5 mg PO QAM Albuterol Nebulized [Ventolin Nebulized] 2.5 mg INHALATION Q6H PRN PRN Reason: sob Discharge Medication List Albuterol Nebulized [Ventolin Nebulized] 2.5 mg INHALATION Q6H PRN 06/11/22 [History] Budesonide-Formot 160-4.5 Mcg [Symbicort 160-4.5 Mcg Inhaler] 2 puff INHALATION BID PRN 06/11/22 [History] Nitroglycerin Sl Tabs [Nitrostat] 0.4 mg SUBLINGUAL Q5M PRN 06/11/22 [History] lisinopriL [Zestril] 5 mg PO QAM 06/11/22 [History] Pantoprazole [Protonix] 40 mg PO DAILY #30 tab 06/15/22 [Rx] Sucralfate [Carafate] 1 gm PO BID #60 tablet 06/15/22 [Rx] Follow up App[facility]ment(s[facility] [place] [facility] - [place]22 Patient Instructions/Handouts: Peptic Ulcer (DC), Esophageal Dilation (DC) Discharge Disposition: HOME SELF-CARE
== END 2022-06-15 09:00 | disposition home or self-care (01) ==
LOC: ORWHC2ENDO 06:51
PROVIDERS: ATTEND Surgery Plastic and Reconstructive Surgery
DX: K29.50 Unspecified chronic gastritis without bleeding (principal); K28.5 Chronic or unspecified gastrojejunal ulcer with perforation; K44.9 Diaphragmatic hernia without obstruction or gangrene; K21.9 Gastro-esophageal reflux disease without esophagitis; E66.01 Morbid (severe) obesity due to excess calories; I10 Essential (primary) hypertension; E78.5 Hyperlipidemia, unspecified; E11.9 Type 2 diabetes mellitus without complications; J45.909 Unspecified asthma, uncomplicated; M19.90 Unspecified osteoarthritis, unspecified site; Z87.2 Personal history of diseases of the skin and subcutaneous tissue; Z86.79 Personal history of other diseases of the circulatory system; Z98.84 Bariatric surgery status; Z87.891 Personal history of nicotine dependence; Z79.51 Long term (current) use of inhaled steroids; Z79.899 Other long term (current) drug therapy; Z91.040 Latex allergy status; Z88.8 Allergy status to other drugs, medicaments and biological substances; Z91.011 Allergy to milk products; Z88.0 Allergy status to penicillin; Z88.1 Allergy status to other antibiotic agents; Z79.01 Long term (current) use of anticoagulants
CPT/HCPCS: 88305; 43239; 43245; J2704; J2001; 43249

== ENCOUNTER → 2022-06-24 | Outpatient (CLI) | payer MEDICARE, OTHER ==
[2022-06-24 11:09] VITALS: BP 176/63; PULSE 68; TEMP 98.5; BMI 34.4
--- NOTE | 2022-06-24 12:04 | P.HPBAR ---
Bariatric H&P - History & Physicial H&P Date: 06/24/22 History & Physicial: Visit/CC: EGD f/u Patient initial contact: Initial weight: 77.474 kg Initial weight in pounds: 170.80 Height: 5 ft 5 in Initial BMI: 28.4 Last weight: Current weight: 93.894 kg Current weight in pounds: 207.00 Current BMI: 34.4 [place] body weight (based on NIH guidelines): 56.699 kg Excess body weight loss: The patient is a 66 year-old F who presents for Bariatric Assessment. She is 10 years out from her surgery gastric bypass in 2011. She has ulcer and stricture. She needs full bariatric labs. She was down to 207 pounds. Recommend labs and repeat upper scope. She reports intermittent pressure. Recommend re- check with dietitian. Follow up in 4 to 6 weeks. Past Medical History Past Medical History: Asthma, Diabetes Mellitus, GERD/Reflux, Hyperlipidemia, Hy pertension, Osteoarthritis (OA), Skin Disorder, Supraventricular Tachycardia (SVT) Additional Past Medical History / Comment(s): LEG CRAMPS. Resolved diabetes post bariatric surgery. Hiatial hernia. CATARACTS. stomach ULCERS. PER PATIENT,"HAS A HEART MURMUR". History of Any Multi-Drug Resistant Organisms: MRSA Year Discovered:: ?2009 MDRO Source:: MRSA skin abcess, RIGHT BREAST Past Surgical History: Bariatric Surgery Additional Past Surgical History / Comment(s): GASTRIC Bypass 07/14/12 [place]. Cataracts rt eye 12/02/15 removed and left eye 11/17/15. Past Anesthesia/Blood Transfusion Reactions: Family History of Problems w/ Anesthesia, Motion Sickness, Postoperative Nausea & Vomiting (PONV) Additional Past Anesthesia/Blood Transfusion Reaction / Comm: SISTER HAD CONFUSION.,unable to lay flat causes N/V Past Psychological History: No Psychological Hx Reported Smoking Status: Former smoker Past Alcohol Use History: Rare Additional Past Alcohol Use History / Comment(s): SMOKED AT AGE 16 QUIT BY AGE 21 SMOKED 1.5 PPD SMOKED UNFILTERED [place], HAS AN OCC DRINK AT [place] Past Drug Use History: None Reported - Past Family History Mother Sister(s) Family Medical History: Cancer Surgical - Exam Vital Signs Temp Pulse BP 98.5 F 68 176/63 06/24/22 11:03 06/24/22 11:03 06/24/22 11:03 Bariatric Checklist Checklist: Plan: Checklist: EGD: 1. Hiatal hernia: 2. H. Pylori: HgbA1c: Vitamin D: Smoking: Former smoker Primary care physician referral: Dr Nino Psychiatry clearance: Cardiology clearance: Sleep study: Diet journal: VTE risk score: VTE risk level: Rehab needs at discharge:
[2022-06-24 13:33] LABS: INR 0.9 (<1.2); Partial Thromboplastin Time 22.4 sec (22.0-30.0); Prothrombin Time 10.2 sec (9.0-12.0)
[2022-06-24 18:16] LABS: HCT 33.9 % (37.2-46.3); HGB 10.3 g/dL (12.0-15.0); MCH 24.2 pg (27.0-32.0); MCHC 30.4 g/dL (32.0-37.0); MCV 79.6 fL (80.0-97.0); Mean Platelet Volume 11.3 fL (9.5-12.2); NRBC Per 100 WBC 0 /100 WBCS (0.0-0.0); Platelet Count 293 X 10*3/uL (140-440); RBC 4.26 X 10*6/uL (4.10-5.20); RDW 15.6 % (11.5-14.5)
[2022-06-24 18:37] LABS: ALT 13 U/L (8-44); AST 20 U/L (13-35); African American GFR (CKD) 87.8 (60.0-200.0); Albumin 4.1 g/dL (3.8-4.9); Albumin/Globulin Ratio 1.64 (1.60-3.17); Alkaline Phosphatase 101 U/L (41-126); BUN/Creat Ratio 18.25 Ratio (12.00-20.00); Blood Urea Nitrogen 14.6 mg/dL (9.0-27.0); Carbon Dioxide 25.3 mmol/L (20.0-27.5); Chloride 104 mmol/L (96-109); Globulin 2.5 g/dL (1.6-3.3); Glucose 96 mg/dL (70-110); Non-African American GFR(CKD) 75.8 (60.0-200.0); Phosphorus 3.8 mg/dL (2.4-5.1); Potassium 4.3 mmol/L (3.5-5.5); Sodium 141 mmol/L (135-145); Total Protein 6.6 g/dL (6.2-8.2)
[2022-06-24 18:38] LABS: % Iron Saturation 3.78 (12.00-45.00); Ferritin 7.7 ng/mL (10.0-291.0); Iron 19 ug/dL (50-170); Magnesium 1.9 mg/dL (1.5-2.4); Total Iron Binding Capacity 490 ug/dL (228-460)
[2022-06-24 18:48] LABS: LDL Cholesterol,Calculated 84.5 mg/dL (0.0-131.0); VLDL Calculation 11.64 mg/dL (5.00-40.00)
[2022-06-24 19:37] LABS: Vitamin B12 <150.0 pg/mL (200.0-944.0)
[2022-06-25 12:42] LABS: Zinc, Serum 56 ug/dL (60-130)
[2022-06-26 08:39] LABS: Vitamin A 27 ug/dL (38-106)
== END ==
LOC: BARWHC3 10:50
PROVIDERS: ATTEND Surgery Plastic and Reconstructive Surgery
DX: E66.01 Morbid (severe) obesity due to excess calories (principal); Z68.34 Body mass index [BMI] 34.0-34.9, adult; Z88.0 Allergy status to penicillin; Z88.7 Allergy status to serum and vaccine; Z88.6 Allergy status to analgesic agent; Z91.013 Allergy to seafood; Z88.8 Allergy status to other drugs, medicaments and biological substances; Z91.011 Allergy to milk products
CPT/HCPCS: 84255; 84134; 84425; 80061; 80053; 82607; 82728; 82525; 82746; 83540; 83550; 83735; 84100; 84443; 84590; 84630; 85027; 85610; 85730; 82306; 83970; 83036; 97802; G0463; 99211

== ENCOUNTER 2022-08-10 06:24 | Day surgery (SDC) | payer MEDICARE, OTHER ==
[2022-08-06 14:26] VITALS: BMI 35.7
[~2022-08-10 06:24] MED LIST changes: -ALPRAZolam 0.25 MG TAB PO PRN; -ASPIRIN 325 MG TAB PO ONE; -FAMOTIDINE 20 MG/2 ML VIAL IV ONE; +LACTATED RINGERS 1,000 ML IV SCH; +LIDOCAINE 1% (10MG/ML) FOR IV START INTRADERMA PRN; -NITROGLYCERIN SL TABS 0.4 MG TAB SUBLINGUAL PRN; -SODIUM CHLORIDE 0.9% 1,000 ML in EMPTY BAG 1 BAG IV ONE; -diphenhydrAMINE 50 MG/ML 1 ML VIAL IVP STA; -methylPREDNISolone SOD SUCCI 125 MG/2 ML VIAL IV STA
[2022-08-10 06:56] VITALS: TEMP 98.4
[2022-08-10] MEDS ORDERED: LIDOCAINE 2% INJ 20 MG/ML (2 ML VIAL) ONE (06:57)
[2022-08-10] MEDS ORDERED: PROPOFOL 10 MG/ML 20 ML VIAL IV ONE (06:57)
[2022-08-10 06:58] LABS: Glucose,Whole Blood 96 mg/dL (70-110)
--- NOTE | 2022-08-10 06:59 | P.GSHP ---
History of Present Illness H&P Date: 08/10/22 CHIEF COMPLAINT: Esophageal stricture HISTORY OF PRESENT ILLNESS: The patient is a 66-year-old female who presents reports dysphagia. Upper endoscopy was offered for further evaluation and management. PAST MEDICAL HISTORY: Please see list. PAST SURGICAL HISTORY: Please see list. MEDICATIONS: Please see list. ALLERGIES: Please see list. SOCIAL HISTORY: No illicit drug use FAMILY HISTORY: No reports of Crohn disease or ulcerative colitis. REVIEW OF ORGAN SYSTEMS: CONSTITUTIONAL: No reports of fevers or chills. GI: Denies any blood in stools or constipation. PHYSICAL EXAM: VITAL SIGNS: Stable GENERAL: Well-developed and pleasant in no acute distress. HEENT: No scleral icterus. Extraocular movements grossly intact. Moist buccal mucosa. NECK: Supple without lymphadenopathy. CHEST: Unlabored respirations. Equal bilateral excursions. CARDIOVASCULAR: Regular rate and rhythm. Distal 2+ pulses. ABDOMEN: Soft, nondistended. MUSCULOSKELETAL: No clubbing, cyanosis, or edema. ASSESSMENT: 1. Esophageal stricture PLAN: 1. Recommend proceeding with an upper endoscopy with rigid dilators. Past Medical History Past Medical History: Asthma, Diabetes Mellitus, GERD/Reflux, Hyperlipidemia, Hypertension, Osteoarthritis (OA), Skin Disorder, Supraventricular Tachycardia (SVT) Additional Past Medical History / Comment(s): LEG CRAMPS. Resolved diabetes post bariatric surgery. Hiatial hernia. CATARACTS. stomach ULCERS. PER PATIENT,"HAS A HEART MURMUR". History of Any Multi-Drug Resistant Organisms: MRSA Date of last positivie culture/infection: ?2009 MDRO Source:: MRSA skin abcess, RIGHT BREAST Past Surgical History: Bariatric Surgery Additional Past Surgical History / Comment(s): GASTRIC Bypass 07/14/12 [place]. Cataracts rt eye 12/02/15 removed and left eye 11/17/15. EGD Past Anesthesia/Blood Transfusion Reactions: Family History of Problems w/ Anesthesia, Motion Sickness, Postoperative Nausea & Vomiting (PONV) Additional Past Anesthesia/Blood Transfusion Reaction / Comment(s): SISTER HAD CONFUSION.,unable to lay flat causes N/V Smoking Status: Former smoker - Past Family History Mother Sister(s) Family Medical History: Cancer Medications and Allergies Home Medications Medication Instructions Recorded Confirmed Type Albuterol Nebulized [Ventolin 2.5 mg INHALATION Q6H PRN 06/11/22 08/10/22 History Nebulized] Budesonide-Formot 160-4.5 Mcg 2 puff INHALATION BID PRN 06/11/22 08/10/22 History [Symbicort 160-4.5 Mcg Inhaler] Nitroglycerin Sl Tabs [Nitrostat] 0.4 mg SUBLINGUAL Q5M PRN 06/11/22 08/10/22 History lisinopriL [Zestril] 5 mg PO QAM 06/11/22 08/10/22 History Pantoprazole [Protonix] 40 mg PO DAILY #30 tab 06/15/22 08/10/22 Rx Sucralfate [Carafate] 1 gm PO BID #60 tablet 06/15/22 08/10/22 Rx Allergies Allergy/AdvReac Type Severity Reaction Status Date / Time latex Allergy Rash/Hives Verified 08/10/22 06:42 methylprednisolone Allergy Unknown Verified 08/10/22 06:42 [From Medrol] Milk Containing Products Allergy Diarrhea Verified 08/10/22 06:42 [Dairy] penicillin G Allergy Rash/Hives Verified 08/10/22 06:42 shellfish derived [Shellfish] Allergy Swelling, Verified 08/10/22 06:42 HIVES sulfamethoxazole Allergy Rash/Hives Verified 08/10/22 06:42 [From Bactrim] trimethoprim [From Bactrim] Allergy Rash/Hives Verified 08/10/22 06:42 Surgical - Exam Vital Signs Temp Pulse Resp BP Pulse Ox 98.4 F 55 L 18 171/74 97 08/10/22 06:45 08/10/22 06:45 08/10/22 06:45 08/10/22 06:45 08/10/22 06:45
--- NOTE | 2022-08-10 07:14 | P.PCN ---
Date of Procedure: 08/10/22 Description of Procedure: PREOPERATIVE DIAGNOSES: 1. Epigastric abdominal pain. 2. Nausea and vomiting. 3. History of gastric bypass. 4. History of gastric ulcers. POSTOPERATIVE DIAGNOSES: 1. Gastrojejunal stricture with ulcer and obstruction 2. Gastric stenosis 3. Esophageal ulcer PROCEDURE PERFORMED: Esophagogastrojejunoscopy. SURGEON: Delaney Olguin MD ANESTHESIA: MAC. INDICATIONS: The patient is a 66-year-old female with prior history of Jaison-en-Y gastric bypass. In the last several weeks, she has had intermittent nausea and vomiting, particularly of the epigastric abdominal pain. With his history of Jaison-en-Y gastric bypass, upper endoscopy was offered for further evaluation and management. DESCRIPTION: Patient was brought to the endoscopy suite and laid in the left lateral decubitus position. After adequate IV sedation, a bite block was placed. An Olympus gastroscope was passed along the posterior oropharynx down to the distal esophagus where the squamocolumnar junction was found at approximately 38 cm from the incisors. Anastomosis was found at 43 cm, consistent with approximately 7 cm gastric pouch. The scope was advanced 60 cm from the incisors. No evidence of foreign body was found. Active gastrojejunal ulcerations with stricture and esophageal ulcer without bleeding were encountered. The GI tract was desufflated. The patient tolerated the procedure well. FINDINGS: 1. Acute gastrojejunal ulceration with esophageal ulceration and stricture PLAN: 1. Increase Protonix 40 mg daily to twice daily 2. Increased Carafate 1 g twice a day to 3 times daily 3. Repeat upper endoscopy one month for dilation of stricture Plan - Discharge Summary Discharge Rx Participant: No New Discharge Prescriptions: New Pantoprazole [Protonix] 40 mg PO DAILY #60 tab Sucralfate [Carafate] 1 gm PO TID #90 tab Continue Nitroglycerin Sl Tabs [Nitrostat] 0.4 mg SUBLINGUAL Q5M PRN PRN Reason: Chest Pain Budesonide-Formot 160-4.5 Mcg [Symbicort 160-4.5 Mcg Inhaler] 2 puff INHALATION BID PRN PRN Reason: sob lisinopriL [Zestril] 5 mg PO QAM Albuterol Nebulized [Ventolin Nebulized] 2.5 mg INHALATION Q6H PRN PRN Reason: sob Discontinued Sucralfate [Carafate] 1 gm PO BID #60 tablet Pantoprazole [Protonix] 40 mg PO DAILY #30 tab Discharge Medication List Albuterol Nebulized [Ventolin Nebulized] 2.5 mg INHALATION Q6H PRN 06/11/22 [History] Budesonide-Formot 160-4.5 Mcg [Symbicort 160-4.5 Mcg Inhaler] 2 puff INHALATION BID PRN 06/11/22 [History] Nitroglycerin Sl Tabs [Nitrostat] 0.4 mg SUBLINGUAL Q5M PRN 06/11/22 [History] lisinopriL [Zestril] 5 mg PO QAM 06/11/22 [History] Pantoprazole [Protonix] 40 mg PO DAILY #60 tab 08/10/22 [Rx] Sucralfate [Carafate] 1 gm PO TID #90 tab 08/10/22 [Rx] Follow up Appointment(s)/Ref[place](s[place] [facility] [place] - 08/26/22 Patient Instructions/Handouts: Peptic Ulcer (GEN) Activity/Diet/Wound Care/Special Instructions: Repeat upper endoscopy 4 weeks, for dilation Discharge Disposition: HOME SELF-CARE
[2022-08-10 07:20] VITALS: PULSE 54; RESP 16
[2022-08-10 07:31] VITALS: BP 148/84
== END 2022-08-10 07:55 | disposition home or self-care (01) ==
LOC: ORWHC2ENDO 06:24
PROVIDERS: ATTEND Surgery Plastic and Reconstructive Surgery
DX: K22.10 Ulcer of esophagus without bleeding (principal); K31.89 Other diseases of stomach and duodenum; K21.9 Gastro-esophageal reflux disease without esophagitis; K22.2 Esophageal obstruction; J45.909 Unspecified asthma, uncomplicated; E11.9 Type 2 diabetes mellitus without complications; I10 Essential (primary) hypertension; E78.5 Hyperlipidemia, unspecified; M19.90 Unspecified osteoarthritis, unspecified site; Z88.2 Allergy status to sulfonamides; Z88.1 Allergy status to other antibiotic agents
CPT/HCPCS: 43235; J2704; J2001

== ENCOUNTER → 2022-08-26 | Outpatient (CLI) | payer MEDICARE, OTHER | END | disposition home or self-care (01) | LOC: LABPAT 14:48 | PROVIDERS: ATTEND Surgery Plastic and Reconstructive Surgery | DX: Z01.812 Encounter for preprocedural laboratory examination (principal) | CPT/HCPCS: 36415; 93005 ==

== ENCOUNTER → 2022-09-30 | Outpatient (CLI) | payer MEDICARE, OTHER ==
--- NOTE | 2022-09-30 07:30 | US ---
EXAMINATION TYPE: US gallbladder DATE OF EXAM: 09/30/2022 COMPARISON: US CLINICAL HISTORY: R10.12 LEFT UPPER QUAD PAIN. Pt states ABD pain TECHNIQUE: Multiple sonographic images of the right upper quadrant are obtained. FINDINGS: EXAM MEASUREMENTS: Liver Length: 15.8 cm Gallbladder Wall: 0.2 cm CBD: 0.4 cm Right Kidney: 9.2 x 4.1 x 4.3 cm Pancreas: wnl, tail obscured by overlying bowel gas Liver: Heterogeneous without focal lesion. No dilated ducts. Gallbladder: Distended with multiple, mobile gallstones Evidence for sonographic Bajwa's sign: No CBD: wnl Right Kidney: Possible parapelvic cyst= 1.5 x 0.7 x 1.6 cm IMPRESSION: 1. Cholelithiasis without evidence of cholecystitis. 2. Parapelvic right renal cyst.
== END | disposition home or self-care (01) ==
LOC: RADUSWWP 06:40
PROVIDERS: ATTEND Surgery Plastic and Reconstructive Surgery
DX: K80.20 Calculus of gallbladder without cholecystitis without obstruction (principal); N28.1 Cyst of kidney, acquired
CPT/HCPCS: 76705

== ENCOUNTER → 2022-10-12 | Outpatient (CLI) | payer MEDICARE, OTHER ==
--- NOTE | 2022-10-12 09:31 | NM ---
EXAMINATION TYPE: NM hepatobiliary w EF DATE OF EXAM: 10/12/2022 COMPARISON: Gallbladder ultrasound September 30, 2022 HISTORY: Abdominal pain with diminished appetite, nausea and vomiting. TECHNIQUE: After the intravenous administration of 4.8 mCi Tc 99m Mebrofenin hepatobiliary scintigrap hy is performed. Immediate images post injection. FINDINGS: There is satisfactory initial accumulation of tracer by the liver. The gallbladder is visualized wit hin 55 minutes. The small bowel activity is noted within 20 minutes. At one hour 8 ounces of oral e nsure plus is given to mimic CCK and gallbladder ejection fraction is calculated at 93 %, do not dimi marissa from the normal range. Therefore there is no scintigraphic evidence of cystic or common bile du ct obstruction to suggest acute cholecystitis. IMPRESSION: Ejection fraction is 93%, some consider this abnormal or a hyperkinetic response. Patient did experience some increased nausea with oral Ensure.
== END | disposition home or self-care (01) ==
LOC: RADNMMAIN 06:36
PROVIDERS: ATTEND Surgery Plastic and Reconstructive Surgery
DX: R10.12 Left upper quadrant pain (principal); R11.2 Nausea with vomiting, unspecified
CPT/HCPCS: 78226; A9537

== ENCOUNTER → 2023-07-15 | Outpatient (CLI) | payer MEDICARE, OTHER ==
--- NOTE | 2023-07-16 07:46 | MM ---
Reason for Exam: Screening (asymptomatic). Last mammogram was performed 6 year(s) and 7 month(s) ago. Patient History: Menarche at age 15. Patient has no children. Postmenopausal. Mother had breast cancer, age 30. Risk Values: Alona 5 year model risk: 3.1%. NCI Lifetime model risk: 9.3%. Prior Study Comparison: 08/17/2012 Screening Mammogram, [place]. 06/13/2014 Bilateral Screening Mammogram, [facility]. 12/15/2016 Bilateral Screening Mammogram, [facility]. Tissue Density: There are scattered fibroglandular densities. Findings: Analyzed By CAD. There is no suspicious group of microcalcifications or new suspicious mass in either breast. Benign calcifications within both breasts. Overall Assessment: Benign, BI-RAD 2 Management: Screening Mammogram of both breasts in 1 year. A clinical breast exam by your physician is recommended on an annual basis and results should be correlated with mammographic findings. Note on Alona scores and lifetime risk: 1. A Alona score greater than 3% is considered moderate risk. If this is the case, consider specialist referral to assess eligibility for a risk reducing agent. If overall lifetime risk for the development of breast cancer is 20% or higher, the patient may qualify for future screening with alternating mammogram and breast MRI. Electronically signed and approved by: Da Fierro D.O.
== END | disposition home or self-care (01) ==
LOC: RADMAMWWP 15:42
PROVIDERS: ATTEND Family Medicine
DX: Z12.31 Encounter for screening mammogram for malignant neoplasm of breast (principal); Z78.0 Asymptomatic menopausal state; Z80.3 Family history of malignant neoplasm of breast
CPT/HCPCS: 77063; 77067

== ENCOUNTER → 2023-07-20 | Outpatient (CLI) | payer MEDICARE, OTHER ==
--- NOTE | 2023-07-20 17:22 | BD ---
EXAMINATION TYPE: Axial Bone Density DATE OF EXAM: 07/20/2023 CLINICAL HISTORY: 67 years old Female. ICD-10 CODE: M89.9 DISORDER OF BONE Height: 63 Weight: 183.9 FRAX RISK QUESTIONS: Alcohol (3 or more units per day): no Family History (Parent hip fracture): no Glucocorticoids (More than 3mos): no (Ex: prednisone, prednisolone, methylprednisolone, dexamethasone, and hydrocortisone). History of Fracture in Adulthood: no Secondary Osteoporosis: 1. Type 1 Diabetes: no 2. Hyperthyroidism: no 3. Menopause before 45: no 4. Malnutrition: no 5. Chronic liver disease: no Rheumatoid Arthritis: no Current Tobacco Use: no RISK FACTORS HISTORY OF: Surgery to Spine/Hip(right/left)/Wrist (right/left): no Postmenopausal woman: yes MEDICATIONS: Additional History: EXAM MEASUREMENTS: Bone mineral densitometry was performed using the [employer]. Bone mineral density as measured about the Lumbar spine is: ----- L1-L4(G/cm2): 0.975 T Score Values are as follows: ----- L1: -2.3 ----- L2: -1.7 ----- L3: 1.5 ----- L4: 1.4 ----- L1-L4: -1.7 Z Score Values are as follows: ----- L1: -1.2 ----- L2: -0.6 ----- L3: -0.4 ----- L4: -0.4 ----- L1-L4: -0.7 Bone mineral density has: decreased -12.9 % since study of: 2013 Bone mineral density about the R hip (g/cm2): 0.735 Bone mineral density about the L hip (g/cm2): 0.659 T Score values are as follows: -----R Neck: -2.1 -----L Neck: -2.6 -----R Total: -2.2 -----L Total: -2.8 Z Score values are as follows: -----R Neck: -0.9 -----L Neck: -1.3 -----R Total: -1.2 -----L Total: -1.8 Bone mineral density has: decreased -28.7 % since study of: 2014 FRAX%s: The graph provided illustrates a 14.7% chance for a major osteoporotic fx and a 3.9% chance f or the hips probability for fx in 10 years time. IMPRESSION: Osteoporosis (T Score less than -2.5). There is increased fracture risk and therapy is usually indicated based on age. Re-Screen 1-2 years. NOTE: T-SCORE=SD OF THE YOUNG ADULT MEAN.
== END | disposition home or self-care (01) ==
LOC: RADBDWWP 15:58
PROVIDERS: ATTEND Family Medicine
DX: M81.0 Age-related osteoporosis without current pathological fracture (principal); Z78.0 Asymptomatic menopausal state
CPT/HCPCS: 77080

== ENCOUNTER → 2024-12-22 | Outpatient (CLI) | payer MEDICARE ==
--- NOTE | 2024-12-22 15:43 | FL ---
EXAMINATION TYPE: FL barium swallow DATE OF EXAM: 12/22/2024 3:06 PM COMPARISON: None. CLINICAL INDICATION: Female, 69 years old with history of R13.10 DYSPHAGIA, UNSPECIFIED, Dysphagia TECHNIQUE: Esophagram was performed per the single contrast technique. The patient swallowed barium without difficulty or delay. FINDINGS: Esophageal peristalsis and motility appear to be within normal limits. There is no evidence for filling defect, mass or diverticulum. There is small fixed hiatal hernia noted. Identified are changes of gastric bypass small gastric remn ant seen. There is no evidence for obstruction as contrast is noted within the proximal duodenum. Subsequently single contrast cervical esophagram was performed which fails demonstrate evidence for a spiration penetration or mass. IMPRESSION: There is small fixed hiatal hernia noted. Identified are changes of gastric bypass small gastric remn ant seen. There is no evidence for obstruction as contrast is noted within the proximal duodenum. [facility], , 12/22/2024 3:41 PM
== END | disposition home or self-care (01) ==
LOC: RADFLMAIN 14:35
PROVIDERS: ATTEND Family Medicine
DX: K44.9 Diaphragmatic hernia without obstruction or gangrene (principal); R13.10 Dysphagia, unspecified; Z98.84 Bariatric surgery status
CPT/HCPCS: 74220

== ENCOUNTER → 2025-01-25 | Outpatient (CLI) | payer MEDICARE, OTHER ==
--- NOTE | 2025-01-25 13:41 | XR ---
EXAMINATION TYPE: XR ribs LT DATE OF EXAM: 01/25/2025 1:33 PM INDICATION: Patient age:Female; 69 years old; Reason for study: S23.41XA SPRAIN OF RIBS, INITIAL ENCOUNTER; [facility]. pain COMPARISON: CT chest 03/06/2018, left rib radiographs 03/01/2018 TECHNIQUE: Frontal and oblique views of the left ribs FINDINGS: The ribs have a normal appearance. No evidence of fracture. Overall, the lungs are clear. The cardiac silhouette is enlarged in size. Atherosclerotic calcification of the aorta. The remainin g osseous structures are intact. Dextrocurvature of the thoracic spine. IMPRESSION: No acute osseous pathology. Consider further evaluation with CT if there is continuing clinical hakan rn. [facility], , 01/25/2025 1:39 PM
== END | disposition home or self-care (01) ==
LOC: RADXRMAIN 13:13
PROVIDERS: ATTEND Family Medicine
DX: S23.41XA Sprain of ribs, initial encounter (principal)

== ENCOUNTER → 2025-02-05 | Outpatient (CLI) | payer MEDICARE, OTHER ==
--- NOTE | 2025-02-05 17:01 | CT ---
EXAMINATION TYPE: CT chest wo con DATE OF EXAM: 02/05/2025 COMPARISON: Chest CT 28 cc CLINICAL INDICATION: Female, 69 years old with history of R09.1 PLEURISY, Pain on left side of ribs 3 -4 weeks. TECHNIQUE: CT scan of the thorax is performed without IV contrast. CT DLP: 519.9 mGycm. Automated Exposure Control for Dose Reduction was Utilized. FINDINGS: LUNGS: The lungs are grossly clear, there is no concerning parenchymal mass or focal consolidation id entified. There is no pleural effusion or pneumothorax seen. The tracheobronchial tree is patent. HEART: Size within normal limits. Moderate coronary artery calcifications present. Surgical change an d/or calcification at the level of the aortic valve is present. Surgical change at the level of the l eft atrium is now present. MEDIASTINUM: Lack of IV contrast is noted to limit evaluation for mediastinal and especially hilar ad enopathy. There are no definitive new greater than 1 cm mediastinal lymph nodes. No pericardial eff usion is seen. OTHER: Surgical changes epigastric region are redemonstrated. There is new moderate size hiatal herni a. Scoliotic curvature in the thoracic spine with multilevel spurring and bridging osteophytes is red emonstrated. IMPRESSION: No suspicious findings seen to account for patient's clinical symptoms. [facility], , 02/05/2025 4:58 PM
== END | disposition home or self-care (01) ==
LOC: RADCTMAIN 15:51
PROVIDERS: ATTEND Family Medicine
DX: R09.1 Pleurisy (principal)
CPT/HCPCS: 71250

== ENCOUNTER → 2025-02-07 | Outpatient (CLI) | payer MEDICARE, OTHER ==
--- NOTE | 2025-02-07 12:50 | US ---
EXAMINATION TYPE: US bladder DATE OF EXAM: 02/07/2025 COMPARISON: NONE CLINICAL INDICATION: Female, 69 years old with history of N39.490 OVERFLOW INCONTINENCE; TECHNIQUE: Grayscale and color doppler imaging of the bilateral kidneys and urinary bladder. FINDINGS: EXAM MEASUREMENTS: Post Void Residual Volume: 3.7 mL CONCRETE POURER NOTES: Color Doppler performed to assess ureteral jets. Bilateral Jets seen: Yes Normal Post Void Residual (less than 50ml): Yes IMPRESSION: No abnormal post void residual. [facility], , 02/07/2025 12:48 PM
== END | disposition home or self-care (01) ==
LOC: RADUSWWP 12:28
PROVIDERS: ATTEND Family Medicine
DX: N39.490 Overflow incontinence (principal)
CPT/HCPCS: 76857

== ENCOUNTER → 2025-04-11 | Outpatient (CLI) | payer MEDICARE, OTHER ==
--- NOTE | 2025-04-11 15:34 | CT ---
EXAMINATION TYPE: CT brain wo con CT DLP: 1012.7 mGycm, Automated exposure control for dose reduction was used. DATE OF EXAM: 04/11/2025 3:26 PM COMPARISON: CT brain 11/13/2022, 12/16/2016 CLINICAL INDICATION:Female, 69 years old with history of R51.9 HEADACHE, UNSPECIFIED, headaches TECHNIQUE: Brain: Multiple axial CT images of the brain were obtained without IV contrast. . Coronal and sagitta l reformats reviewed. FINDINGS: Brain: Extra-axial spaces: No abnormal extra-axial fluid collections. Ventricular system: Within normal limits Cerebral parenchyma: Cerebral atrophy. No acute intraparenchymal hemorrhage or mass effect. The brandon -white junction is well differentiated. Scattered hypoattenuating areas are seen within the periventr icular white matter. Cerebellum: Unremarkable. Mass effect: No evidence of midline shift. Intracranial vasculature: Atherosclerotic calcifications of the intracranial vessels. Soft tissues: Normal. Calvarium/osseous structures: No depressed skull fracture. Paranasal sinuses and mastoid air cells: Clear, nasal septal deviation to the left. Visualized orbits: Bilateral aphakia IMPRESSION: 1. No acute intracranial process. 2. Nonspecific white matter changes, likely secondary to chronic small vessel ischemic disease. [facility], , 04/11/2025 3:32 PM
== END | disposition home or self-care (01) ==
LOC: RADCTMAIN 15:11
PROVIDERS: ATTEND Family Medicine
DX: R51.9 Headache, unspecified (principal); R90.82 White matter disease, unspecified
CPT/HCPCS: 70450